=== PATIENT | female | born 1955 | race Caucasian/White ===

== ENCOUNTER 2017-03-22 19:25 | Emergency (ER) | payer OTHER ==
[~2017-03-22 19:25] MED LIST: LORTA5 PO; MAXA10TA2 PO; OMPR20CCR; SPIR50; TOPI100 PO; TRAZ50TA4 PO; VITA400C28 PO; VITA500T49 PO; ZANA4TAB PO; [UNRECOGNIZED DRUG - CODE] PO; wellbutrin PO
[2017-03-22 19:28] VITALS: BP 131/63; PULSE 75; RESP 16; TEMP 97.8; O2SAT 98
[2017-03-22] MEDS ORDERED: KETOROLAC TROMETHAMINE 60 MG/2 ML (IM) VIAL IM ONE (20:15)
[2017-03-22] MEDS ORDERED: ORPHENADRINE INJ 60 MG/2 ML AMP IM ONE (20:15)
--- NOTE | 2017-03-22 20:23 | PD ---
HPI Chief Complaint: Musculoskeletal Complaint Time Seen by Provider: 19:46 Travel History International Travel<30 days: No Contact w/Intl Traveler<30days: No Traveled to known affect area: No History of Present Illness HPI 61 YO F presents to the ED for evaluation of neck, right shoulder and arm pain and weakness for "months." She states that the pain has gotten worse over time with no known injury. She endorses numbness, tingling, weakness and limitations to ROM to the shoulder. She states that the pain is rated 10/10 shooting, worsened by movement, keeps her up at night. Somewhat improved with NSAIDS. She saw her primary care provider and has an order for an MRI but states that she cannot afford the co-pay. She endorses similar symptoms on the left arm prior to cervical fusion with Dr. Zabala. She states that she is in the process of scheduling an appointment with him. PFSH Past Medical History Arthritis: No Asthma: Yes Autoimmune Disease: No Anxiety: Yes (WELLBUTRIN) Cancer: No Cardiovascular Problems: No COPD: No Diabetes: No Endocrine: No GERD: No Genitourinary: No Hiatal Hernia: No Immune Disorder: No Musculoskeletal: Yes Neurologic: Yes Psychiatric: No Reproductive: No Respiratory: Yes Migraines: Yes Sleep Apnea: No Thyroid Disease: No Ulcer: No Past Surgical History Abdominal Surgery: No Cardiac Surgery: No Ear Surgery: No Endocrine Surgery: No Eye Surgery: No Genitourinary Surgery: No Gynecologic Surgery: Yes (TUBAL LIGATION 1984) Oral Surgery: No Pacemaker: No Thoracic Surgery: No Social History Tobacco Use: No Allergies-Medications (Allergen,Severity, Reaction): Coded Allergies: penicillin G (Unverified Allergy, Unknown, rash, 03/22/17) Uncoded Allergies: biaxin (Allergy, Unknown, agitation, 11/22/16) Reported Meds & Prescriptions Reported Meds & Active Scripts Active Spout Spring (Hydrocodone-Acetaminophen) 5 Mg-325 Mg Tab 1 Tab PO Q6H PRN Ibuprofen 800 Mg Tab 800 Mg PO Q8H PRN Flexeril (Cyclobenzaprine HCl) 10 Mg Tab 10 Mg PO TID Review of Systems Except as stated in HPI: all other systems reviewed are Neg Physical Exam Narrative GENERAL: Well-nourished, well-developed tearful white female in no acute distress. SKIN: Focused skin assessment warm/dry. HEAD: Normocephalic. EYES: No scleral icterus. No injection or drainage. NECK: Supple, trachea midline. No JVD or lymphadenopathy. No midline tenderness to palpation. Tenderness to palpation of the paraspinal musculature on the right. CARDIOVASCULAR: Regular rate and rhythm without murmurs, gallops, or rubs. RESPIRATORY: Breath sounds equal bilaterally. No accessory muscle use. GASTROINTESTINAL: Abdomen soft, non-tender, nondistended. MUSCULOSKELETAL: No cyanosis, or edema. 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 RIGHT UPPER EXTREMITY EXAM: 2+ radial pulse. Tender to palpation of the musculature over the scapula and acromioclavicular joint. Patient is labile to flex and extend and supinate and pronate the elbow joint. She is abduct the arm to shoulder height. Sensation intact to light touch distally. Cap refill less than 2 seconds. BACK: Nontender without obvious deformity. No CVA tenderness. Data Data Last Documented VS Vital Signs Date Time Temp Pulse Resp B/P (MAP) Pulse Ox O2 Delivery O2 Flow Rate FiO2 03/22/17 21:15 03/22/17 19:28 97.8 75 16 98 Room Air Orders Orders Ketorolac Inj (Toradol Inj) (03/22/17 20:15) Orphenadrine Inj (Norflex Inj) (03/22/17 20:15) Ed Discharge Order (03/22/17 20:55) [facility] Medical Decision Making Medical Screen Exam Complete: Yes Emergency Medical Condition: Yes Differential Diagnosis Musculoskeletal pain versus cervical radiculopathy versus rotator cuff injury versus other Narrative Course 61 YO F presents to the ED for evaluation of neck, right shoulder and arm pain and weakness for "months." She states that the pain has gotten worse over time with no known injury. She endorses numbness, tingling, weakness and limitations to ROM to the shoulder. She states that the pain is rated 10/10 shooting, worsened by movement, keeps her up at night. Somewhat improved with NSAIDS. She saw her primary care provider and has an order for an MRI but states that she cannot afford the co-pay. She endorses similar symptoms on the left arm prior to cervical fusion with Dr. Zabala and is in the process of scheduling an appointment with him. Vitals reviewed. On exam the patient is well-appearing she has strong civil engineer in training strength in the bilateral hands. She is with noticed to hold a pen and write normally. Sensation intact in the nerve distributions of the arm. She does have some musculoskeletal tenderness of the right shoulder that extends into the arm. She is administered IM Toradol and Norflex. We discussed possible MRI, but I don't think the patient's exhibiting symptoms of true neurologic emergency. I suspect this is musculoskeletal pain superimposed on her chronic neck issues. She is prescribed a short course of narcotic pain medications for pain 6 through 10, ibuprofen for pain less than 6 and muscle relaxants. She is instructed to follow-up with Dr. Zabala. She indicated understanding of instructions and is agreeable to the care plan. She stable and discharged home. Diagnosis Primary Impression: Chronic neck pain Additional Impression: Shoulder pain, right Qualified Codes: M25.511 - Pain in right shoulder Referrals: Mushtaq Zabala MD Patient Instructions: Cervical Radiculopathy (ED), General Instructions Additional Instructions: Rest, hydrate. Ice or heat applied to areas of pain 10-15 minutes at a time a few times per day may help to improve your symptoms. Take medication as prescribed. Do not drive while taking muscle relaxants or narcotic pain medications as these may cause dizziness and drowsiness. Return to normal, gentle activity as tolerated. Follow up with your primary care provider Dr. Zabala as discussed. Return to the ED for worsening symptoms or any urgent or emergent medical condition. Med/Other Pt SpecificInfo: Prescription(s) given Scripts Hydrocodone-Acetaminophen (Spout Spring) 5 Mg-325 Mg Tab 1 TAB PO Q6H Y for PAIN, #12 TAB 0 Refills Prov: James Plasencia MD 03/22/17 Ibuprofen (Ibuprofen) 800 Mg Tab 800 MG PO Q8H Y for Pain/Inflammation, #15 TAB 0 Refills Prov: James Plasencia MD 03/22/17 Cyclobenzaprine (Flexeril) 10 Mg Tab 10 MG PO TID for Muscle Spasm, #15 TAB 0 Refills Prov: James Plasencia MD 03/22/17 Disposition: 01 DISCHARGE HOME Condition: Stable Aleyda Caldwell Mar 22, 2017 20:23
[2017-03-22] MEDS ORDERED: IBUP1TAB7 PO (20:55)
[2017-03-22] MEDS ORDERED: NORC5TAB PO (20:55)
[2017-03-22] MEDS ORDERED: CYCL10TA PO (20:55)
== END 2017-03-22 21:16 | disposition home or self-care (01) ==
LOC: NEPK 19:25
DX: M54.2 Cervicalgia (principal); G89.29 Other chronic pain; M25.511 Pain in right shoulder; M62.81 Muscle weakness (generalized); J45.909 Unspecified asthma, uncomplicated; F41.9 Anxiety disorder, unspecified; Z79.899 Other long term (current) drug therapy; Z88.0 Allergy status to penicillin; Z88.8 Allergy status to other drugs, medicaments and biological substances
CPT/HCPCS: 96372; 99284; J1885; J2360

== ENCOUNTER 2017-05-02 06:20 | Observation (INO) | payer OTHER ==
[~2017-05-02] VITALS: Ht 160 cm; Wt 71.6 kg
[~2017-05-02 06:20] MED LIST changes: +ALBU6.7H INH; +BUPR150CR PO; +FEMH0.5T PO; +HYDR-3366 PO; -LORTA5 PO; -OMPR20CCR; -SPIR50; +TRAZ50TA12 PO; -TRAZ50TA4 PO; -VITA400C28 PO; -VITA500T49 PO; -ZANA4TAB PO; -[UNRECOGNIZED DRUG - CODE] PO; -wellbutrin PO
[2017-05-02] MEDS ORDERED: POVIDONE IODINE 5% (ANTISEPSIS KIT) 4 APPLICATIONS EACH NARE PRN (06:45)
[2017-05-02] MEDS ORDERED: VANCOMYCIN 1000 MG/NS 250 ML ON-CALL IV SCH ×2 (06:45)
[2017-05-02] MEDS ORDERED: LACTATED RINGER'S 1000 ML IV PRN (06:45)
[2017-05-02] MEDS ORDERED: CHLORHEXIDINE GLUCONATE 2 % 1 PACK (2 CLOTHS) TOPICAL PRN (06:45)
[2017-05-02] MEDS ORDERED: METOPROLOL TARTRATE 25 MG TAB PO PRN (06:45)
[2017-05-02] MEDS ORDERED: SODIUM CHLORID 0.9% 500 ML IV PRN (06:45)
[2017-05-02] MEDS ORDERED: SODIUM CHLOR 0.9% 1000 ML INJ 1,000 ML IV SCH (06:45)
[2017-05-02] MEDS ORDERED: MICROFIBRILLAR COLLAGEN HEMOSTAT 70 X 35 MM BANDAGE ONE (07:10)
[2017-05-02] MEDS ORDERED: THROMBIN (TOPICAL) 5,000 UNIT VIAL ONE (07:10)
[2017-05-02] MEDS ORDERED: ceFAZolin 2 GM PREMIX 50 ML ONE (07:10)
[2017-05-02] MEDS ORDERED: GENTAMICIN SULFATE 80 MG/2 ML VIAL ONE (07:11)
[2017-05-02] MEDS ORDERED: GELFOAM SIZE 100 ONE (07:11)
[2017-05-02] MEDS ORDERED: PROPOFOL 500 MG/50 ML INJ 100 ML ONE (07:23)
[2017-05-02] MEDS ORDERED: APREPITANT 40 MG CAP ONE (07:47)
[2017-05-02] MEDS ORDERED: ACETAMINOPHEN 1000 MG/100 ML 100 ML IV ONE (07:57)
[2017-05-02] MEDS ORDERED: DEXTROSE 50% IN WATER 50 ML VIAL(D50) IV PUSH PRN (11:00)
[2017-05-02] MEDS ORDERED: ACETAMINOPHEN 325 MG TAB PO PRN (11:00)
[2017-05-02] MEDS ORDERED: DO NOT ADM ANY ANTICOAGULANT DRUGS PRN (11:00)
[2017-05-02] MEDS: SODIUM CHLOR 0.9% 1000 ML INJ 1,000 ML IV SCH ×2 (11:00→21:00)
[2017-05-02] MEDS ORDERED: MORPHINE SULFATE 4 MG/ML INJ IV PUSH PRN (11:00)
[2017-05-02] MEDS ORDERED: ONDANSETRON HCL 4 MG/2 ML VIAL IV PRN (11:00)
[2017-05-02] MEDS ORDERED: MENTHOL LOZENGE BUCCAL PRN (11:00)
[2017-05-02] MEDS ORDERED: cloNIDine HCL 0.1 MG TAB PO/NG PRN (11:00)
[2017-05-02] MEDS ORDERED: GLUCAGON 1 MG/ML VIAL OTHER PRN (11:00)
[2017-05-02] MEDS ORDERED: RESP: ALBUTEROL 2.5 MG/3 ML NEB (PRN) INH (11:00)
[2017-05-02] MEDS ORDERED: MAGNESIUM HYDROXIDE SUSP 30 ML CUP PO PRN (11:00)
[2017-05-02] MEDS ORDERED: ACETAMINOPHEN/HYDROcodone 325 MG/10 MG TAB PO PRN (11:00)
[2017-05-02] MEDS ORDERED: BISACODYL 10 MG SUPP RECTAL PRN (11:00)
--- NOTE | 2017-05-02 11:03 | PD.OP ---
Operative Report Date of Surgery: May 02, 2017 Preoperative Diagnosis: C6-7 cervical disk herniation Postoperative Diagnosis: C6-7 cervical disk herniation Procedure: C6-7 anterior cervical discectomy, interbody arthodhesis using PEEK cage filled with autologous bone graft, Simplicity plate and screws. Anesthesia: general Surgeon: Mushtaq Zabala Res Habilitation Assistant(s): Gwendolyn Cruz Operation and Findings: INTRAOPERATIVE FINDINGS Consistent with a disk herniation and extrusion at C6-C7 INDICATIONS FOR THE PROCEDURE Ms Rodriguez is a 61 year-old female who presented with intractable neck pain and clinical evidence of C7 right upper extremity radiculopathy. She had a disk herniation at C6-7, adjacent to a area of prior fusion. She failed maximum nonsurgical management. A surgical decompression and arthrodhesis were indicated. The [id number] details of the procedure, indications, alternatives, risks and potential complications were fully discussed with the patient. The patient fully understood. All The questions were answered. No guarantees were given. The patient voiced requesting the procedure and provided informed consents. The patient was offered the alternative of delaying the procedure and continuing with nonsurgical management. DETAILS OF THE SURGICAL PROCEDURE After the induction of general anesthesia, endotracheal intubation was performed. A Busby catheter, bilateral RAGHAVENDRA hose, and sequential compression devices were placed and kept throughout the procedure. The patient was positioned supine on a Feroz table with the head over a gel doughnut. All pressure points were carefully padded with eggcrate mattress. The eyes were tapped shut after ointment was applied by the anesthesiologist to prevent corneal abrasion. A Marie hugger was placed over the exposed lower body to maintain control of the core body temperature. The electrophysiological team placed the needles and electrodes in their proper location and baseline SSEP's and motor evoked potentials were registered. The anterior cervical region was prepped and draped in the usual sterile fashion. A localizing x-ray was performed with a C-arm. The surgical procedure was performed in several steps as follow: SURGICAL APPROACH A skin incision was made along the inferior cervical crease with a #10 blade. The dissection was carried out through the platysma exposing the sternocleidomastoid muscle. The cervical spine was approached following the fascial layers of the neck just medial to the anterior border of the sternocleidomastoid and carotid sheath by a combination of sharp and dull dissection. The tissues were severely abnormal and scarred, related to the previous surgery. The omohyoid muscle was identified and carefully dissected laterally and the deep cervical fascia was carefully opened. The longus colli muscles were retracted to each side of the midline. The plate at C5-C6 was exposed. Initially the locking screws were sequentially removed, and then the set screws were removed. The plate was dissected from the surrounding tissues and carefully elevated with a ligament dissector. A marker was placed at the disc space C6-C7 and a cross-table lateral x-ray performed with a C-arm. SURGICAL DECOMPRESSION In order to decompress the anterior surface of the spinal cord it was necessary to preform a microsurgical resection of the disk at C6-C7. At this point in the procedure the operating microscope was draped in the usual sterile fashion and brought to the field. The rest of the surgical procedure was performed using microdissection technique with the exception of the closure. Under the operative microscopic, a self-retaining retractor was placed underneath the longus colli muscle. The annulus at C6-C7 was incised with a #15 blade and microdiscectomy was then carefully carried out using angled curets and pituitary forceps. The disk was completely damaged. There was a large disk herniation with an extruded right foraminal fragment which was producing mass effect on the exiting right C6 nerve root. The posterior longitudinal ligament was then elevated with an angled curet and incised with a 15 bladed knife. A careful resection of the posterior longitudinal ligament was carried out using a thin footplate 2 mm Kerrison. A nerve hook was used to assess the epidural space behind the vertebral bodies C6 and C7 in search for residual disk fragments. The margins of the posterior endplates at C6 and C7 were carefully drilled and undercut with a TPS drill under high magnification. The decompression was then carried out laterally, and a bilateral foraminotomy was performed with a 2mm thin foot Kerrison. Then the vertebral bodies above and below the disk space were undercut using a 2 mm thin foot Kerrison. The epidural space was the systematically assessed with a nerve hook in search for disk. An excellent decompression was achieved in both, the dural sac and bilateral exiting nerve roots. The incision was then irrigated with a large amount of antibiotic solution INTERBODY ARTHRODHESIS In order to avoid collapse of the disk space which would result in bilateral foraminal stenosis, and to increase the chances of a successful fusion, it was necessary to place an interbody cage filled with autologous bone. At this point of the procedure, the superior and inferior endplates were then evenly decorticated with a TPS drill. The use of a drill in combination with a curette allowed me to systematically remove the cartilaginous endplates, exposing healthy bone for the interbody arthrodesis. Fourteen millimeters distraction pins were then placed at the vertebral bodies adjacent to the disk space, and gentle distraction was applied. The size of the interbody cage was then assessed using different size spacers, and a rasp was used to ensure no residual cartilage. A PEEK cage of the appropriate size was selected, and the interbody arthrodesis was then preformed by carefully impacting a PEEK cage filled with autologous bone graft obtained from the bone fragments at the disk space C6-C7. An excellent position of the cage was achieved. This was was confirmed anatomically by assessing the space posterior to the implant and distance to the anterior surface of the dural sac. Radiological confirmation of the position was performed with a cross lateral xray performed with the C-arm. INTERNAL INSTRUMENTAL FIXATION Once that the interbody device was in an appropriate position, it was necessary to stabilize the spine with anterior instrumentation. Anterior instrumentation has demonstrated to increase the rate of fusion, accelerate the patient's recovery, and decrease the rate of failed interbody grafts. At this point of the procedure, the distance between the vertebral bodies was carefully measures , and a Cervical plate was brought to the field and presented in front of the vertebral bodies C6 and C7. Jacquard Loom Card Changer holes were then drilled using the TPS drill, and the plate was then secured to the spine using self-drilling, self-tapping screws. Initially, the inferior right screw was inserted, followed by placement of the contralateral upper screw. The remaining screws were sequentially placed in a contra-lateral fashion. A proper purchase was achieved with all screws and the position of the cage, plate and screws, and alignment of the spine was assessed anatomically by direct visualization, and radiologically by performing a cross lateral xray of the cervical spine with the C-arm. CLOSURE The incision was irrigated with several liters of antibiotic solution. Hemostasis was achieved with a bipolar. The screws were locked to prevent backing out. The incision was then closed in layers. 3-0 Vicryl with interrupted sutures was used to close the platysma and subcutaneous tissue. The skin was closed with 4-0 running subcuticular Vicryl and Dermabond was applied. At the end of the procedure the sponge, needle and instrument counts were all correct. The estimated blood loss was less than 70 cc. No blood transfusion was given. No intraoperative complications occurred. The patient received prophylactic antibiotics. The patient was then extubated and transferred to the recovery room in stable condition. Mushtaq Zabala MD May 02, 2017 11:03
[2017-05-02] MEDS ORDERED: MIDAZOLAM HCL 2 MG/2 ML VIAL ONE (11:26)
[2017-05-02] MEDS ORDERED: MORPHINE SULFATE 2 MG/ML INJ IV PUSH PRN (11:30)
[2017-05-02] MEDS ORDERED: *morphine SULFATE 10 MG/ML PERIprocedure ONLY ONE ×2 (11:42→13:44)
[2017-05-02] MEDS ORDERED: DEXAMETHASONE SOD PHOS 4 MG/ML VIAL IV ONE (12:00)
[2017-05-02] MEDS ORDERED: PROPOFOL 200 MG/20 ML AMP IV ONE (12:00)
[2017-05-02] MEDS: DEXAMETHASONE SOD PHOS 4 MG/ML VIAL IV PUSH SCH ×3 (12:00→23:08)
[2017-05-02] MEDS ORDERED: NEOSTIGMINE 5 MG/5 ML SYRINGE IV PUSH ONE (12:00)
[2017-05-02] MEDS ORDERED: ROCURONIUM INJ 50 MG/5 ML SYRINGE IV PUSH ONE (12:00)
[2017-05-02] MEDS ORDERED: LIDOCAINE HCL 1% PF 5 ML SYRINGE OTHER ONE (12:00)
[2017-05-02] MEDS ORDERED: PHENYLEPH/NS 1000 MCG/10 ML SYR IV ONE (12:00)
[2017-05-02] MEDS ORDERED: LACTATED RINGER'S 1000 ML INJ 1,000 ML IV ONE (12:00)
[2017-05-02] MEDS ORDERED: ONDANSETRON HCL 4 MG/2 ML VIAL IV ONE (12:00)
[2017-05-02] MEDS ORDERED: ePHEDrine/NS 25 MG/5 ML SYRINGE IV ONE (12:00)
[2017-05-02] MEDS ORDERED: GLYCOPYRROLATE 1 MG/5 ML SYRINGE IV PUSH ONE (12:00)
[2017-05-02 15:00] VITALS: BP 149/80; PULSE 92; RESP 18; TEMP 97.7; O2SAT 95
[2017-05-02] MEDS: ceFAZolin 2 GM PREMIX 50 ML IV SCH ×2 (16:50→23:33)
[2017-05-02 16:59] VITALS: O2SAT 97
[2017-05-02] MEDS: ACETAMINOPHEN/HYDROcodone 325 MG/10 MG TAB PO PRN ×2 (18:23→23:07)
--- NOTE | 2017-05-02 19:30 | RADRPT ---
EXAM DATE/TIME: 05/02/2017 08:58 [facility] COMPARISON: No previous studies available for comparison. INDICATIONS : Artificial disk C6,C7. MEDICAL HISTORY : None. SURGICAL HISTORY : Fusion, cervical. ENCOUNTER: Initial ACUITY: 1 day PAIN SCORE: Non-responsive. LOCATION: Cervical spine. FINDINGS: There is fusion across C6-7 with artificial disc at C5-6-7. No complications identified. CONCLUSION: 1. Fusion as above. Curt Claros MD on May 02, 2017 at 19:27 Board Certified Radiologist. This report was verified electronically.
[2017-05-02 20:30] VITALS: BP 122/47; PULSE 85; RESP 17; TEMP 97.7; O2SAT 96
[2017-05-02] MEDS ORDERED: CHLORHEXIDINE GLUCONATE 4% SOLN 120 ML BTL TOP SCH (21:00)
[2017-05-02] MEDS: DOCUSATE SODIUM 100 MG CAP PO SCH (21:17)
[2017-05-02] MEDS: CYCLOBENZAPRINE HCL 10 MG TAB PO PRN (21:17)
[2017-05-02 23:05] VITALS: BP 122/75; PULSE 83; RESP 17; TEMP 98.5; O2SAT 96
[2017-05-03] MEDS: ACETAMINOPHEN/HYDROcodone 325 MG/10 MG TAB PO PRN ×2 (02:30→09:22)
[2017-05-03 04:05] VITALS: BP 122/65; PULSE 86; RESP 18; TEMP 96.4; O2SAT 97
[2017-05-03] MEDS: CYCLOBENZAPRINE HCL 10 MG TAB PO PRN (06:03)
[2017-05-03] MEDS: DEXAMETHASONE SOD PHOS 4 MG/ML VIAL IV PUSH SCH (06:03)
[2017-05-03] MEDS: SODIUM CHLOR 0.9% 1000 ML INJ 1,000 ML IV SCH (06:05)
[2017-05-03 08:00] VITALS: BP 127/68; PULSE 79; RESP 18; TEMP 98; O2SAT 96
[2017-05-03 08:07] VITALS: O2SAT 96
[2017-05-03] MEDS ORDERED: PANTOPRAZOLE SODIUM 40 MG VIAL IVP PRN (09:00)
[2017-05-03] MEDS ORDERED: PANTOPRAZOLE SOD 40 MG DELAYED RELEASE TAB PO SCH (09:00)
[2017-05-03] MEDS ORDERED: HYDR-2374 PO (09:13)
[2017-05-03] MEDS ORDERED: CYCL10TA PO (09:13)
[2017-05-03] MEDS: DOCUSATE SODIUM 100 MG CAP PO SCH (09:22)
[2017-05-03] MEDS: ceFAZolin 2 GM PREMIX 50 ML IV SCH (09:23)
--- NOTE | 2017-05-03 09:55 | HHI.DCPOC ---
Discharge Care Plan Diagnosis: (1) Status post cervical arthrodesis Goals to Promote Your Health * To prevent worsening of your condition and complications * To maintain your health at the optimal level Directions to Meet Your Goals Take your medications as prescribed Follow your dietary instruction Follow activity as directed Keep your appointments as scheduled Take your immunizations and boosters as scheduled If your symptoms worsen call your PCP, if no PCP go to Urgent Care Center or Emergency Room Smoking is Dangerous to Your Health. Avoid second hand smoke Call the 24-hour hour crisis hotline for domestic abuse at [facility] May 03, 2017 09:55
--- NOTE | 2017-05-03 10:01 | HHI.DS ---
Discharge Summary Admission Date May 02, 2017 at 11:01 Discharge Date: May 03, 2017 Admitting Diagnosis s/p ACDF (1) Status post cervical arthrodesis ICD Code: Z98.1 - Arthrodesis status Brief History Ms Rodriguez is a 61 year-old female who presented with intractable neck pain and clinical evidence of C7 right upper extremity radiculopathy. She had a disk herniation at C6-7, adjacent to a area of prior fusion. She failed maximum nonsurgical management. A surgical decompression and arthrodesis were indicated. Imaging Last Impressions Cervical Spine X-Ray 05/02/17 0000 Signed Impressions: Service Date/Time: Tuesday, May 02, 2017 08:58 - CONCLUSION: 1. Fusion as above. Curt Claros MD PE at Discharge Ms. Rodriguez is alert, in no apparent distress. Speech is appropriate. Mentation intact. Incision with clean, dry Optifoam dressing Cranial nerve examination: pupils equal, round and reactive to light. Facial motor are normal and symmetrical. Cervical spine has limited range of motion appropriate for postoperative conditions. Motor: moves all major muscle groups of upper and lower extremities with good strength Lung: CTA b/l Heart: NSR Hospital Course Ms. Rodriguez underwent C6-7 anterior cervical discectomy, interbody arthodhesis using PEEK cage filled with autologous bone graft, Simplicity plate and screws on May 02, 2017 for C6-7 cervical disk herniation. Her surgery went well without complications. She is discharged home in stable conditions. Pt Condition on Discharge: Good Discharge Disposition: Discharge Home Discharge Instructions DIET: Follow Instructions for: Heart Healthy Diet ADDITIONAL Diet Instructions: soft foods and advance as tolerated ACTIVITIES You can perform: Weight Bearing As Eve ADDITIONAL Activity Instructio: Avoid strenuous activities, heavy lifting over 5 lbs, overhead activities, repetitive bending, twisting, pushing, pulling or any activities which might result in stress over the spine. Avoid situation that will put at risk for falls. Use assistive device as needed for walking. Wear cervical collar at all times, may remove only with meals. New Medications: Cyclobenzaprine (Flexeril) 10 Mg Tab 10 MG PO TID for Muscle Spasm, #90 TAB 0 Refills Hydrocodone-Acetaminophen (Hydrocodone-Acetaminophen) 10-300 Tab 1 TAB PO Q8HR PRN for PAIN, #90 TAB 0 Refills Continued Medications: Albuterol 6.7 GM Inh (Proventil Hfa 6.7 GM Inh) 90 Mcg/Act Aer 2 PUFF INH Q4-6H PRN for SHORTNESS OF BREATH, #1 INHALER 0 Refills Bupropion HCl ER 12 HR (Wellbutrin SR 12 HR) 150 Mg Tab 150 MG PO DAILY for Control Depression, TAB 0 Refills Hydrocodone-Acetaminophen ([place]) 10-325 Mg Tab 1 TAB PO Q6H PRN for PAIN, TAB 0 Refills Norethindrone-Ethinyl Estradiol (Femhrt Low Dose) 0.5-2.5 Mg-Mcg Tab 1 TAB PO DAILY, #30 TAB 0 Refills Rizatriptan (Maxalt) 10 Mg Tab 10 MG PO PRN for HEADACHE Topiramate (Topamax) 100 Mg Tab 100 MG PO HS for Control Seizures, #60 TAB 0 Refills Trazodone (Trazodone) 50 Mg Tab 50 MG PO HS for Control Depression, #30 TAB 0 Refills [facility] May 03, 2017 10:01
== END 2017-05-03 12:19 | disposition home or self-care (01) ==
LOC: HSDC 06:20 → HSDI 11:01 → N06B 15:01
PROVIDERS: ADMIT Neurological Surgery; ATTEND Neurological Surgery
DX: M50.223 Other cervical disc displacement at C6-C7 level (principal); M19.90 Unspecified osteoarthritis, unspecified site
CPT/HCPCS: 00600; 20936; 22551; 22853; 72040; 76000; 94150; 97161; C1713; G0378; G8987; G8988; J0131; J0690; J1100; J1580; J2250; J2270; J2370; J2405; J2710; J3010; J3370; J7030; J7050; J7120; L0150; L0172; J8501